=== PATIENT | female | born 1985 | race African-American/Black ===

== ENCOUNTER 2024-08-09 21:54 | Emergency (ER) | payer SELFPAY ==
[2024-08-09 23:43] VITALS: BP 105/57; PULSE 84; RESP 22; TEMP 36.6; O2SAT 100
[2024-08-10 01:23] LABS: Basophils Percent Auto 0.3 % (0.2-1.2); Eosinophils Absolute Auto 0.1 K/mm3 (0-0.3); Eosinophils Percent Auto 0.7 % (0-4.4); Hematocrit 33.3 % (37.0-47.0); Hemoglobin 10.2 g/dL (12.0-15.0); Immature Granulocyte Absolute 0.05 K/mm3 (0.00-0.031); Immature Granulocyte Percent A 0.4 % (0-0.5); Lymphocytes Absolute Auto 1.09 K/mm3 (0.9-3.2); Lymphocytes Percent Auto 7.9 % (18.3-44.2); Mean Corpuscular HGB Conc 30.6 g/dl (32-36); Mean Corpuscular Hemoglobin 24.2 pg (26-34); Mean Corpuscular Volume 78.9 fl (80-100); Monocytes Absolute Auto 0.6 K/mm3 (0.1-0.6); Monocytes Percent Auto 4.3 % (2.6-8.5); Neutrophils Percent Auto 86.4 % (45.5-73.1); Platelet Count Result 263 k/mm3 (150-375); Red Blood Count 4.22 M/mm3 (4.2-5.4); Red Cell Distribution Width 17.5 % (11.5-14.5); White Blood Count 13.9 K/mm3 (4.5-10.0)
[2024-08-10 01:29] LABS: BEDSIDEPREGUCG Negative (Negative)
[2024-08-10 01:31] LABS: Alanine Aminotransferase 28 U/L (6-35); Albumin Level 4.3 g/dL (3.5-5.1); Alkaline Phosphatase 62 U/L (38-126); Anion Gap 11 mmol/L (4-12); Aspartate Amino Transferase 32 U/L (14-36); Bilirubin,Total 0.5 mg/dL (0.2-1.3); Blood Urea Nitrogen 13 mg/dL (7-17); Calcium 8.9 mg/dL (8.4-10.2); Carbon Dioxide 22 mmol/L (22-30); Chloride 105 mmol/L (98-107); Estimated CRCL calculation 101 ml/min; Estimated Glomerular Filt Rate > 60; Glucose 105 mg/dL (65-110); Potassium 4.3 mmol/L (3.4-5.0); Sodium 138 mmol/L (137-145); Total Protein 8.6 g/dL (6.3-8.2)
[2024-08-10 01:32] LABS: Acetaminophen < 10 ug/mL (10-30); Ethanol < 10 mg/dL (<10); Salicylate < 1.0 mg/dL (2-20)
--- NOTE | 2024-08-10 01:33 | ED_ITS ---
HPI - Anxiety General Chief Complaint: Anxiety <ITALO Chun Last Filed: 08/10/24 02:06> Stated Complaint: anxiety, SOB <ITALO Chun Last Filed: 08/10/24 02:06> Time Seen by Provider: 08/09/24 23:23 <ITALO Chun Last Filed: 08/10/24 02:06> Source: patient <ITALO Chun Last Filed: 08/10/24 02:06> Mode of arrival: EMS <ITALO Chun Last Filed: 08/10/24 02:06> Limitations: no limitations <ITALO Chun Last Filed: 08/10/24 02:06> History of Present Illness HPI narrative: Patient is a 38-year-old female who presents the ED with report of anxiety. Patient reports she has had increased anxiety over the past few weeks. She has previously been on sertraline for her anxiety disorder, but states she is not have this medicine in the past 1 week. She states she was unable to pick it up from the pharmacy. She is not contact her doctor for this. She states it did help with her anxiety symptoms. She is unsure for dosing. She states tonight, she began having increased anxiety, difficulty managing her anxiety. She states she is still having a very hard time with her father passing away a year and a half ago. She denies any SI or HI. Patient reported to EMS that she smoked marijuana and ate an edible of unknown strength earlier tonight. <ITALO Chun Last Filed: 08/10/24 02:06> Review of Systems 2 Review of Systems: All systems reviewed & are unremarkable except as noted in HPI. <ITALO Chun Last Filed: 08/10/24 02:06> All systems reviewed & are unremarkable except as noted in HPI and below < ITALO Chun Last Filed: 08/10/24 02:06> [facility] Social History Social History: Social History Substance use type: marijuana and unknown <Ольга Pan PA-C - Last Filed: 08/10/24 02:06> Exam 2 Narrative: GENERAL: Well appearing, obese with BMI of 32.7, non-toxic, in no acute distress. HEAD: Normocephalic, atraumatic. RESPIRATORY: Airway patent, respirations nonlabored. CARDIOVASCULAR: Regular rate and rhythm ABDOMINAL: Soft, nontender, nondistended. Normoactive BS. MUSCULOSKELETAL: Moves all extremities. No gross deformities. SKIN: Warm, dry, normal color. NEURO: A&O X3. Speech clear. No ataxic movements. PSYCHIATRIC: Anxious. Cooperative. Normal interaction. <Ольга Pan PA-C - Last Filed: 08/10/24 02:06> Course Course Emergency Course: Patient signed out to me pending evaluation by psych/crisis. They did feel comfortable safety planning patient and providing resources. Patient will call for a same-day appointment on Sunday. At that time there is hope that her dose of sertraline can be identified for a refill prescription since she does not know and we are unable to locate it. Stable for discharge. I had observed patient resting comfortably prior to crisis and then saw/heard them talking with her but otherwise did not directly engage in patient care. <Amy Charles MD - Last Filed: 08/10/24 08:39> Vital Signs Vital signs: Vital Signs Temperature 97.9 F 08/09/24 23:43 Pulse Rate 84 08/09/24 23:43 Respiratory Rate 22 H 08/09/24 23:43 Blood Pressure 105/57 L 08/09/24 23:43 Pulse Oximetry 100 08/09/24 23:43 Oxygen Delivery Room Air 08/09/24 23:43 Temperature 98.2 F 08/10/24 04:12 Pulse Rate 70 08/10/24 04:12 Respiratory Rate 18 08/10/24 04:12 Blood Pressure 111/71 08/10/24 04:12 Pulse Oximetry 100 08/10/24 04:12 Oxygen Delivery Room Air 08/09/24 23:43 <Ольга Pan PA-C - Last Filed: 08/10/24 02:06> Vital Signs Temperature 97.9 F 08/09/24 23:43 Pulse Rate 84 08/09/24 23:43 Respiratory Rate 22 H 08/09/24 23:43 Blood Pressure 105/57 L 08/09/24 23:43 Pulse Oximetry 100 08/09/24 23:43 Oxygen Delivery Room Air 08/09/24 23:43 Temperature 98.2 F 08/10/24 04:12 Pulse Rate 70 08/10/24 04:12 Respiratory Rate 18 08/10/24 04:12 Blood Pressure 111/71 08/10/24 04:12 Pulse Oximetry 100 08/10/24 04:12 Oxygen Delivery Room Air 08/09/24 23:43 <Amy Charles MD - Last Filed: 08/10/24 08:39> MDM - Anxiety MDM Narrative Medical decision making narrative: Patient presented to ED with increased anxiety, difficulty managing anxiety tonight. Did report smoking marijuana and eating a marijuana edible tonight. Vital signs are stable upon arrival. Patient is in no acute distress upon my evaluation. She does appear anxious, but is cooperative, answering all my questions. She is open to speaking to crisis team for resources in follow- up. Denying any SI or HI at this time. Laboratory studies are fairly unremarkable. No significant concerning findings. TSH slightly low. T4 refluxing. Patient will need outpatient f/u of this. Patient medically cleared to undergo psychiatric evaluation by crisis team. Care signed out to Dr. Charles at shift change pending crisis eval/disposition. < Ольга Pan PA-C - Last Filed: 08/10/24 02:06> Medical Records Attestation: I reviewed the patient's medical records. <Ольга Pan PA-C - Last Filed: 08/10/24 02:06> Lab Data Attestation: I reviewed the patient's lab results. <Ольга Pan PA-C - Last Filed: 08/10/24 02:06> Result diagrams: 08/10/24 01:06 08/10/24 01:06 <Ольга Pan PA-C - Last Filed: 08/10/24 02:06> Labs: Lab Results 08/10/24 08/10/24 08/10/24 Range/Units 01:06 01:24 01:26 WBC 13.9 H (4.5-10.0) K/mm3 RBC 4.22 (4.2-5.4) M/mm3 Hgb 10.2 L (12.0-15.0) g/dL Hct 33.3 L (37.0-47.0) % MCV 78.9 L (80-100) fl MCH 24.2 L (26-34) pg MCHC 30.6 L (32-36) g/dl RDW 17.5 H (11.5-14.5) % Plt Count 263 (150-375) k/mm3 MPV 10.0 (7.4-10.4) fl Immature Gran % (Auto) 0.4 (0-0.5) % Neut % (Auto) 86.4 H (45.5-73.1) % Lymph % (Auto) 7.9 L (18.3-44.2) % [place] % (Auto) 4.3 (2.6-8.5) % Eos % (Auto) 0.7 (0-4.4) % Baso % (Auto) 0.3 (0.2-1.2) % Lymph # (Auto) 1.09 (0.9-3.2) K/mm3 [place] # (Auto) 0.6 (0.1-0.6) K/mm3 Eos # (Auto) 0.1 (0-0.3) K/mm3 Baso # (Auto) 0.0 (0.0-0.1) K/mm3 Abs Immat Gran (auto) 0.05 H (0.00-0.031) K/mm3 Absolute Neuts (auto) 12.0 H (1.3-6.7) K/mm3 Absolute Nucleated RBC 0.000 (0.0-0.012) K/mm3 Nucleated RBC % 0.0 (0.0-0.2) % Sodium 138 (137-145) mmol/L Potassium 4.3 (3.4-5.0) mmol/L Chloride 105 (98-107) mmol/L Carbon Dioxide 22 (22-30) mmol/L Anion Gap 11 (4-12) mmol/L BUN 13 (7-17) mg/dL Creatinine 0.68 L (0.7-1.0) mg/dL Estim Creat Clear Calc 101 ml/min Estimated GFR > 60 (59 - ) Glucose 105 (65-110) mg/dL Calcium 8.9 (8.4-10.2) mg/dL Total Bilirubin 0.5 (0.2-1.3) mg/dL AST 32 (14-36) U/L ALT 28 (6-35) U/L Alkaline Phosphatase 62 (38-126) U/L Total Protein 8.6 H (6.3-8.2) g/dL Albumin 4.3 (3.5-5.1) g/dL TSH (Reflex) 0.364 L (0.465-4.68) uIU/mL Free T4 1.08 (0.78-2.19) ng/dL Total T3 1.22 (0.82-1.58) NG/ML Urine Color Yellow (Yellow) Urine Appearance Clear (Clear) Urine pH 5.5 (5.0-9.0) Ur Specific [place] 1.017 (1.001-1.035) Urine Protein 1+ H (Negative) mg/dL Urine Glucose (UA) Negative (Negative) mg/dL Urine Ketones Negative (Negative) mg/dL Ur Blood (Man) Trace (Negative) Urine Nitrate Negative (Negative) Urine Bilirubin Negative (Negative) Urine Urobilinogen 0.2 (<2.0) mg/dL Add Ur Microanalysis Reviewed Leukocyte Esterase Rfl Negative (Negative) JON/UL Urine RBC 0-2 (0-2) /hpf Urine WBC 0-5 (0-3) /hpf Ur Squamous Epith Cells Few (Few) /hpf Urine Bacteria Rare /hpf Urine Casts 3-5 POC Urine HCG, Qual Negative (Negative) Salicylates < 1.0 L (2-20) mg/dL Urine Opiates Screen Negative (Negative) Urine Methadone Screen Negative (Negative) Acetaminophen < 10 L (10-30) ug/mL Ur Barbiturates Screen Negative (Negative) Ur Phencyclidine Scrn Negative (Negative) Ur Amphetamine Screen Negative (Negative) U Benzodiazepines Scrn Negative (Negative) Urine Cocaine Screen Negative (Negative) U Cannabinoids Screen Positive A (Negative) Ethyl Alcohol < 10 (<10) mg/dL SARS-CoV-2 RNA (RT-PCR) Negative (Negative) <Ольга Pan PA-C - Last Filed: 08/10/24 02:06> Lab Results 08/10/24 08/10/24 08/10/24 Range/Units 01:06 01:24 01:26 WBC 13.9 H (4.5-10.0) K/mm3 RBC 4.22 (4.2-5.4) M/mm3 Hgb 10.2 L (12.0-15.0) g/dL Hct 33.3 L (37.0-47.0) % MCV 78.9 L (80-100) fl MCH 24.2 L (26-34) pg MCHC 30.6 L (32-36) g/dl RDW 17.5 H (11.5-14.5) % Plt Count 263 (150-375) k/mm3 MPV 10.0 (7.4-10.4) fl Immature Gran % (Auto) 0.4 (0-0.5) % Neut % (Auto) 86.4 H (45.5-73.1) % Lymph % (Auto) 7.9 L (18.3-44.2) % [place] % (Auto) 4.3 (2.6-8.5) % Eos % (Auto) 0.7 (0-4.4) % Baso % (Auto) 0.3 (0.2-1.2) % Lymph # (Auto) 1.09 (0.9-3.2) K/mm3 [place] # (Auto) 0.6 (0.1-0.6) K/mm3 Eos # (Auto) 0.1 (0-0.3) K/mm3 Baso # (Auto) 0.0 (0.0-0.1) K/mm3 Abs Immat Gran (auto) 0.05 H (0.00-0.031) K/mm3 Absolute Neuts (auto) 12.0 H (1.3-6.7) K/mm3 Absolute Nucleated RBC 0.000 (0.0-0.012) K/mm3 Nucleated RBC % 0.0 (0.0-0.2) % Sodium 138 (137-145) mmol/L Potassium 4.3 (3.4-5.0) mmol/L Chloride 105 (98-107) mmol/L Carbon Dioxide 22 (22-30) mmol/L Anion Gap 11 (4-12) mmol/L BUN 13 (7-17) mg/dL Creatinine 0.68 L (0.7-1.0) mg/dL Estim Creat Clear Calc 101 ml/min Estimated GFR > 60 (59 - ) Glucose 105 (65-110) mg/dL Calcium 8.9 (8.4-10.2) mg/dL Total Bilirubin 0.5 (0.2-1.3) mg/dL AST 32 (14-36) U/L ALT 28 (6-35) U/L Alkaline Phosphatase 62 (38-126) U/L Total Protein 8.6 H (6.3-8.2) g/dL Albumin 4.3 (3.5-5.1) g/dL TSH (Reflex) 0.364 L (0.465-4.68) uIU/mL Free T4 1.08 (0.78-2.19) ng/dL Total T3 1.22 (0.82-1.58) NG/ML Urine Color Yellow (Yellow) Urine Appearance Clear (Clear) Urine pH 5.5 (5.0-9.0) Ur Specific [place] 1.017 (1.001-1.035) Urine Protein 1+ H (Negative) mg/dL Urine Glucose (UA) Negative (Negative) mg/dL Urine Ketones Negative (Negative) mg/dL Ur Blood (Man) Trace (Negative) Urine Nitrate Negative (Negative) Urine Bilirubin Negative (Negative) Urine Urobilinogen 0.2 (<2.0) mg/dL Add Ur Microanalysis Reviewed Leukocyte Esterase Rfl Negative (Negative) JON/UL Urine RBC 0-2 (0-2) /hpf Urine WBC 0-5 (0-3) /hpf Ur Squamous Epith Cells Few (Few) /hpf Urine Bacteria Rare /hpf Urine Casts 3-5 POC Urine HCG, Qual Negative (Negative) Salicylates < 1.0 L (2-20) mg/dL Urine Opiates Screen Negative (Negative) Urine Methadone Screen Negative (Negative) Acetaminophen < 10 L (10-30) ug/mL Ur Barbiturates Screen Negative (Negative) Ur Phencyclidine Scrn Negative (Negative) Ur Amphetamine Screen Negative (Negative) U Benzodiazepines Scrn Negative (Negative) Urine Cocaine Screen Negative (Negative) U Cannabinoids Screen Positive A (Negative) Ethyl Alcohol < 10 (<10) mg/dL SARS-CoV-2 RNA (RT-PCR) Negative (Negative) <Amy Charles MD - Last Filed: 08/10/24 08:39> Discharge Plan Discharge Clinical Impression: Acute anxiety, Low serum thyroid stimulating hormone (TSH) <Ольга Pan PA-C - Last Filed: 08/10/24 02:06> Patient Disposition: Home <Ольга Pan PA-C - Last Filed: 08/10/24 02:06> Condition: Stable <ITALO Chun Last Filed: 08/10/24 02:06> Instructions: Antibiotic Form, Anxiety (ED) <Ольга Pan PA-C - Last Filed: 08/10/24 02:06> Additional Instructions: Your TSH (thyroid hormone) was low today. You will need to follow up with your primary care doctor for this. If you do not have 1 the name of the doctors listed below. Follow safety plan and utilize resources given to by crisis team. Follow-up closely with your primary care doctor for further evaluation and anxiety medication management. Return to the ED for worsening or severe symptoms, thoughts of wanting to harm herself or anyone else, or any other symptoms of concern. <Ольга Pan PA-C - Last Filed: 08/10/24 02:06> Patient Language: Belgian <Ольга Pan PA-C - Last Filed: 08/10/24 02:06> Follow-up/Referrals: David Robertson DO [Physician] - UNKNOWN,DOCTOR [Primary Care Provider] - <Ольга Pan PA-C - Last Filed: 08/10/24 02:06> Stand Alone Forms: Work/School Release IP <Ольга Pan PA-C - Last Filed: 08/10/24 02:06> Time of Disposition: 03:19 <Ольга Pan PA-C - Last Filed: 08/10/24 02:06> 03:19 <Amy Charles MD - Last Filed: 08/10/24 08:39>
[2024-08-10 01:50] LABS: Add Urine Microscopic? YES; Appearance Urine Clear (Clear); Bacteria Urine Rare /hpf; Bilirubin Urine Negative (Negative); Blood Urine Trace (Negative); Color Urine Yellow (Yellow); Glucose Urine UA Negative (Negative); Ketones Urine Negative (Negative); Leukocyte Esterase Ur Negative LEU/UL (Negative); Need Manual Microscopic Reviewed; Nitrate Urine Negative (Negative); Protein Urine 1+ mg/dL (Negative); RBC Urine 0-2 /hpf (0-2); Specific Grav Ur 1.017 (1.001-1.035); Squamous Epithelial Cell Urine Few /hpf (Few); Urobilinogen Urine 0.2 mg/dL (<2.0); WBC Urine 0-5 /hpf (0-3); pH Urine 5.5 (5.0-9.0)
[2024-08-10 01:56] LABS: Amphetamine Screen Urine Negative (Negative); Barbiturate Screen Urine Negative (Negative); Benzodiazepines Screen Urine Negative (Negative); Cannabinoid Screen Urine Positive (Negative); Cocaine Screen Urine Negative (Negative); Methadone Screen Urine Negative (Negative); Opiate Screen Urine Negative (Negative); Phencyclidine Screen Urine Negative (Negative)
[2024-08-10 01:58] LABS: SARS-CoV-2 RNA PCR Negative (Negative)
[2024-08-10 02:02] LABS: Thyroid Stimulating Hormone Reflex 0.364 uIU/mL (0.465-4.68)
[2024-08-10 02:40] LABS: Free T4 Free Thyroxine Reflex 1.08 ng/dL (0.78-2.19)
[2024-08-10 03:27] LABS: Total Triiodothyronine (T3) 1.22 NG/ML (0.82-1.58)
[2024-08-10 04:12] VITALS: BP 111/71; PULSE 70; RESP 18; TEMP 36.8; O2SAT 100
== END 2024-08-10 04:15 | disposition home or self-care (01) ==
PROVIDERS: Physician Assistant; Emergency Provider Student in an Organized Health Care Education/Training Program
DX: F41.9 Anxiety disorder, unspecified (principal); E03.9 Hypothyroidism, unspecified; Z11.59 Encounter for screening for other viral diseases
CPT/HCPCS: 36415; 80053; 80143; 80179; 80307; 81001; 81025; 82077; 84439; 84443; 84480; 85025; 87635; 99284